=== PATIENT | female | born 1955 | race Caucasian/White ===

== ENCOUNTER → 2019-10-14 | Outpatient (CLI) | payer MEDICARE, BC ==
--- NOTE | 2019-10-14 09:25 | XR ---
Abdomen HISTORY: Left kidney stone Frontal view of the abdomen on 2 images, correlation CT scan 06/24/2018 There is a calcification superimposed over the region of the lower pole the left kidney or possibly t ortuous ureter measuring approximately 2.3 cm. No evident pneumoperitoneum or bowel obstruction. Calc ification in the right hemipelvis is likely representing injection granuloma in the gluteal region on the right. Arthropathy change present at the pubic symphysis. Phleboliths are present within the pel vis. IMPRESSION: Calcification as described felt more likely to be within the left kidney than within the ureter as on prior CT.
== END | disposition home or self-care (01) ==
LOC: RADXRMAIN 08:39
PROVIDERS: ATTEND Urology
DX: N20.1 Calculus of ureter (principal)
CPT/HCPCS: 74018

== ENCOUNTER → 2020-02-04 | Outpatient (CLI) | payer MEDICARE, BC ==
--- NOTE | 2020-02-05 22:17 | XR ---
EXAMINATION TYPE: XR KUB DATE OF EXAM: 02/04/2020 Comparison: 10/14/2019 Clinical History: 64-year-old female left N20.0 Kidney Stone Findings: Large 2.0 cm calculus left mid abdomen. Stable phlebolith in the pelvis. Nonobstructive bowel gas pat tern. Mild stool burden. Supine imaging limited for assessment of free air. Impression: Redemonstrated large 2.0 cm calculus on the left.
== END | disposition home or self-care (01) ==
LOC: RADXRMAIN 10:03
PROVIDERS: ATTEND Urology
DX: N20.0 Calculus of kidney (principal)
CPT/HCPCS: 74018

== ENCOUNTER → 2020-02-22 | Outpatient (CLI) | payer MEDICARE, BC ==
[2020-02-22 08:29] LABS: Basophils # (A) 0.1 k/uL (0-0.2); Basophils % (A) 1 %; Eosinophils # (A) 0.4 k/uL (0-0.7); Eosinophils % (A) 7 %; HCT 43.3 % (34.0-46.0); HGB 13.2 gm/dL (11.4-16.0); Hypochromasia Slight; Lymphocytes # (A) 1.6 k/uL (1.0-4.8); Lymphocytes % (A) 29 %; MCH 26.9 pg (25.0-35.0); MCHC 30.5 g/dL (31.0-37.0); MCV 88.2 fL (80.0-100.0); Mean Platelet Volume 7.2; Monocytes # (A) 0.4 k/uL (0-1.0); Monocytes % (A) 7 %; Neutrophils # (A) 2.9 k/uL (1.3-7.7); Neutrophils % (A) 52 %; Platelet Count 223 k/uL (150-450); RBC 4.91 m/uL (3.80-5.40); RDW 13.1 % (11.5-15.5); WBC 5.6 k/uL (3.8-10.6)
[2020-02-22 08:44] LABS: Calcium 9.2 mg/dL (8.4-10.2); Potassium 4.4 mmol/L (3.5-5.1)
== END | disposition home or self-care (01) ==
LOC: LABPAT 07:32
PROVIDERS: ATTEND Urology
DX: Z01.818 Encounter for other preprocedural examination (principal); N20.0 Calculus of kidney; R31.29 Other microscopic hematuria
CPT/HCPCS: 36415; 80048; 85025; 93005

== ENCOUNTER 2020-02-24 11:37 | Day surgery (SDC) | payer MEDICARE, BC ==
--- NOTE | 2020-02-19 19:41 | P.GSHP ---
History of Present Illness H&P Date: 02/19/20 64 yo femal with a 2 cm llp stone with intermittent pain who comes for pcnl right She has a history of stones This stone origicanly was obstructing in the uj but she declined surgery at that time It has falled back into the llp. It is causing intermittent pain and she wants it out. She comes for a pcnl left the risks complications and alternatives have been discussed. - Constitutional Constitutional: Denies chills, Denies fever - EENT Eyes: denies blurred vision, denies pain Ears, nose, mouth and throat: Denies headache, Denies sore throat - Cardiovascular Cardiovascular: Denies chest pain, Denies shortness of breath - Respiratory Respiratory: Denies cough, Denies 7 - Gastrointestinal Gastrointestinal: Denies abdominal pain, Denies diarrhea, Denies nausea, Denies vomiting - Genitourinary (Female) Genitourinary: Denies dysuria, Denies hematuria - Genitourinary (Male) Genitourinary: Denies dysuria, Denies hematuria - Musculoskeletal Musculoskeletal: Denies myalgias - Integumentary Integumentary: Denies pruritus, Denies rash - Neurological Neurological: Denies numbness, Denies weakness - Psychiatric Psychiatric: Denies anxiety, Denies depression - Endocrine Endocrine: Denies fatigue, Denies weight change Past Medical History Past Medical History: Hypertension Additional Past Medical History / Comment(s): kidney stones History of Any Multi-Drug Resistant Organisms: None Reported Past Surgical History: Hysterectomy, Tonsillectomy Additional Past Surgical History / Comment(s): right ear drum, plantar fasciatis Past Psychological History: No Psychological Hx Reported Smoking Status: Never smoker Past Alcohol Use History: None Reported Past Drug Use History: None Reported Medications and Allergies Home Medications Medication Instructions Recorded Confirmed Type Cephalexin [Keflex] 500 mg PO Q8H 7 Days cap 06/24/18 Rx Ibuprofen [Motrin Ib] 400 mg PO Q6HR PRN 06/24/18 06/24/18 History Losartan Potassium 100 mg PO DAILY 06/24/18 06/24/18 History Naproxen Sodium [Aleve] 220 mg PO DAILY PRN 06/24/18 06/24/18 History amLODIPine [Norvasc] 10 mg PO DAILY 06/24/18 06/24/18 History Allergies Allergy/AdvReac Type Severity Reaction Status Date / Time Iodinated Contrast Media Allergy Anaphylaxis Verified 10/18/18 15:28 [Iodinated Contrast- Oral and IV Dye] Surgical - Exam - General well developed, well nourished, no distress - Eyes normal ocular movement, no icteric - ENT no hearing loss, no congestion - Neck no masses, trachea midline - Respiratory normal respiratory effort, clear to auscultation - Abdomen Abdomen: soft, non tender, no guarding, no rigid, no rebound - Integumentary no rash, no abnormal pigmentation - Neurologic no disoriented, no combative - Musculoskeletal normal gait, normal posture - Psychiatric oriented to time, oriented to person, oriented to place, speech is normal, memory intact Results - Imaging Abdominal x-ray: report reviewed, image reviewed CT scan - chest: report reviewed, image reviewed CT scan - pelvis: report reviewed, image reviewed Assessment and Plan Assessment: Impression: Left renal stone, large Plan: PCNLleft
[2020-02-21 13:39] VITALS: BMI 45.8
[~2020-02-24 11:37] MED LIST: AMPICILLIN 1,000 MG in SODIUM CHLORIDE 0.9% 50 ML IVPB ONE; GENTAMICIN 100 MG in SODIUM CHLORIDE 0.9% 100 ML IVPB ONE
[2020-02-24] MEDS ORDERED: LACTATED RINGERS 1,000 ML IV SCH (11:54)
[2020-02-24] MEDS ORDERED: fentaNYL (PF) 50 MCG/ML 2 ML AMP IV PRN (11:54)
[2020-02-24] MEDS ORDERED: MIDAZOLAM 2 MG/2 ML VIAL IV PRN (11:54)
[2020-02-24] MEDS ORDERED: LIDOCAINE 1% (10MG/ML) FOR IV START INTRADERMA PRN (11:54)
[2020-02-24] MEDS ORDERED: HYDROmorphone 0.5 MG/0.5 ML SYRINGE IVP PRN (11:54)
[2020-02-24] MEDS ORDERED: LIDOCAINE 1% (10MG/ML) FOR IV START INTRADERMA ONE (12:15)
[2020-02-24] MEDS ORDERED: ONDANSETRON 4 MG/2 ML VIAL ONE (12:24)
[2020-02-24] MEDS: DEXAMETHASONE SOD PHOSPHATE 10 MG/ML 1 ML VIAL IV ONE ×2 (12:27→14:56)
[2020-02-24] MEDS: ONDANSETRON 4 MG/2 ML VIAL IVP ONE ×2 (12:27→14:56)
--- NOTE | 2020-02-24 12:36 | XR ---
EXAMINATION TYPE: XR KUB DATE OF EXAM: 02/24/2020 COMPARISON: 02/04/2020 HISTORY: Kidney stone TECHNIQUE: One view abdominal series FINDINGS: The osseous structures are intact. The bowel gas pattern is nonspecific. Stable large 2 cm left emma l stone overlying the lower pole the left kidney. Calcifications the pelvis are nonspecific but stabl e. 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 Hypertrophic change of the spine. IMPRESSION: 1. Stable large left renal calculus measuring 2 cm.
[2020-02-24] MEDS ORDERED: fentaNYL (PF) 50 MCG/ML 2 ML AMP ONE (12:43)
[2020-02-24] MEDS ORDERED: SUCCINYLCHOLINE CHLORIDE 100 MG/5 ML SYR IV ONE (12:43)
[2020-02-24] MEDS ORDERED: PROPOFOL 10 MG/ML 20 ML VIAL IV ONE (12:43)
[2020-02-24] MEDS ORDERED: MIDAZOLAM 2 MG/2 ML VIAL ONE (12:43)
[2020-02-24] MEDS ORDERED: ePHEDrine SULFATE/0.9% NACL/PF 50 MG/5 ML SYRINGE IV ONE (12:43)
[2020-02-24] MEDS ORDERED: LIDOCAINE 1% INJ 10MG/ML (20 ML MDV) ONE (12:43)
[2020-02-24] MEDS ORDERED: ROCURONIUM BROMIDE 10 MG/ML 5 ML VIAL IV ONE (12:43)
[2020-02-24] MEDS ORDERED: NEOSTIGMINE 1 MG/ML 10 ML VIAL ONE (12:43)
[2020-02-24] MEDS ORDERED: GLYCOPYRROLATE 0.2 MG/ML 2 ML VIAL ONE (12:43)
[2020-02-24] MEDS ORDERED: IOPAMIDOL-370 50ML BTL MISCELLANE ONE (13:40)
[2020-02-24] MEDS ORDERED: ACETAMINOPHEN TAB 325 MG TAB PO PRN (14:03)
[2020-02-24] MEDS ORDERED: ONDANSETRON 4 MG/2 ML VIAL IVP PRN (14:03)
[2020-02-24] MEDS ORDERED: MAG HYDROX/AL HYDROX/SIMETH 30 ML CUP PO PRN (14:03)
[2020-02-24] MEDS ORDERED: KETOROLAC 30 MG/ML 1 ML VIAL IVP PRN (14:05)
[2020-02-24] MEDS ORDERED: HYDROmorphone PCA 10 MG/50 ML BAG IV PRN (14:05)
[2020-02-24] MEDS ORDERED: NALOXONE 0.4 MG/ML 1 ML VIAL IV PRN (14:05)
--- NOTE | 2020-02-24 14:08 | P.OP ---
Date of Procedure: 02/24/20 Preoperative Diagnosis: Left renal stone, large greater than 2 cm Postoperative Diagnosis: Same Procedure(s) Performed: Cystoscopy, placement of occluding balloon catheter left, percutaneous nephrostomy (Dr. Lemons) percutaneous nephrostolithotomy with ultrasound, 10- Martiniquais J nephrostomy tube Anesthesia: MARTINA Surgeon: Nicola Fraga Estimated Blood Loss (ml): 50 Pathology: other (Stone) Condition: stable Disposition: PACU Indications for Procedure: The patient is 64. She has a 2 cm stone in the renal pelvis causing pain and obstruction. She comes for a percutaneous nephrostolithotomy Description of Procedure: Patient is brought to the operating suite. She is given a general endotracheal anesthesia on the transport gurney. She's placed in a frog position with sterile prep and drape. Cystoscopy Foroblique lens and 22-Martiniquais sheath identifies left ureter. It is intubated with a 5-Martiniquais occluding balloon catheter which is passed up into the renal pelvis. The cystoscope was removed. The Payton catheter, 16-Martiniquais is placed in the bladder and secured to the ureteral catheter The patient's placed in prone position with care to airways and extremities. Dr. Lemons of radiology performed percutaneous nephrostomy to the left lower pole calyx. The track was dilated to 30-Martiniquais. I introduced the rigid scope into the collecting system. The clot is removed. The stone was seen. With ultrasound the stone was broken into smaller fragments and grasp and removed. End of the procedure I looked throughout the collecting system is no remaining stone. A 10 J nephrostomy tubes placed over the working wire. It flowed freely. The patient's awake and returned recovery in good condition. She tolerated procedure well. Blood loss was probably 50 mL.
--- NOTE | 2020-02-24 14:24 | FL ---
EXAMINATION TYPE: FL Perc Nephrostomy New Access DATE OF EXAM: 02/24/2020 COMPARISON: KUB 02/24/2020 HISTORY: Left nephrolithiasis PROCEDURE: Maximal barrier technique was utilized, hand hygiene obtained with soap and . The skin overlying the left kidney was localized using fluoroscopy and the overlying skin prepped and draped. Skin fabio was made with a scalpel. Access was gained under fluoroscopy, following placement of a ureteral occlusi on balloon by the referring clinician and instillation of air in the renal collecting system with a 2 1-gauge needle to left kidney. A suitable posterior calyx was chosen. A 0.018 inch wire was advanc ed. The access site was dilated, access site was upsized, safety wire deployed and subsequently a sh eath was advanced into the renal pelvis following dilation with balloon along the tract. The patient underwent nephrolithotomy by the referring clinician. The patient remained in stable condition with out complication. The patient was discharged to observation in the care of anesthesia. 5 minute 16 seconds fluoroscopy time, single intraoperative image documents the procedure IMPRESSION: STATUS POST NEPHROSTOMY PLACEMENT FOR NEPHROLITHOTOMY WITH FLUOROSCOPIC GUIDANCE. THIS PROCEDURE PER FORMED BY THE UNDERSIGNED.
[2020-02-24] MEDS: DEXTROSE 5%-0.45% NACL 1,000 ML IV SCH (15:47)
[2020-02-24] MEDS ORDERED: SODIUM CHLORIDE 0.9% 500 ML 500 ML IV ONE (18:12)
[2020-02-25] MEDS: DEXTROSE 5%-0.45% NACL 1,000 ML IV SCH (00:19)
--- NOTE | 2020-02-25 07:22 | P.DS ---
Providers Attending physician: Nicola Fraga Primary care physician: Bautista Marito [facility] Course: The patient is 64. She has a 2 cm left renal stone. This is causing intermittent pain. She underwent a percutaneous nephrostolithotomy yesterday 02/24/2020. She is observed in the hospital overnight. She did well. Her vital signs are stable. Urine output good. She'll be discharged home later today on a regular diet limited activity. She'll take Tylenol or Motrin for pain. She'll be seen in the office Thursday for nephrostomy tube removal. Her condition is good. Stone report is pending. Patient Condition at Discharge: Good Plan - Discharge Summary Discharge Rx Participant: No New Discharge Prescriptions: No Action amLODIPine [Norvasc] 10 mg PO DAILY Losartan Potassium 100 mg PO DAILY Glucosamine Sulfate 500 mg PO DAILY Atenolol [Tenormin] 1 tab PO DAILY Discharge Medication List Losartan Potassium 100 mg PO DAILY 06/24/18 [History] amLODIPine [Norvasc] 10 mg PO DAILY 06/24/18 [History] Glucosamine Sulfate 500 mg PO DAILY 02/21/20 [History] Atenolol [Tenormin] 1 tab PO DAILY 02/24/20 [History] Follow up Appointment(s)/Referral(s): Nicola Fraga MD [STAFF PHYSICIAN] - 02/27/20 Discharge Disposition: HOME SELF-CARE
[2020-02-25] MEDS ORDERED: ATENOLOL PO SCH (09:00)
[2020-02-25] MEDS ORDERED: atenoloL 25 MG TAB PO SCH (09:00)
[2020-02-25] MEDS ORDERED: LOSARTAN 50 MG TAB PO SCH (09:00)
[2020-02-25] MEDS ORDERED: amLODIPine 10 MG TAB PO SCH (09:00)
[2020-02-25 10:23] VITALS: BP 118/68; PULSE 69; RESP 16; TEMP 97.9
== END 2020-02-25 13:05 | disposition home or self-care (01) ==
LOC: OR 11:37 → 6PED 14:10 → OR 02-25 13:05
PROVIDERS: ATTEND Urology
DX: N20.0 Calculus of kidney (principal); I10 Essential (primary) hypertension; Z87.442 Personal history of urinary calculi; Z90.710 Acquired absence of both cervix and uterus; Z90.89 Acquired absence of other organs; Z98.890 Other specified postprocedural states; Z87.39 Personal history of other diseases of the musculoskeletal system and connective tissue; Z79.899 Other long term (current) drug therapy; Z91.041 Radiographic dye allergy status
CPT/HCPCS: 86900; 86901; 86850; 82365; 74018; 50432; 50080; C1769 ×3; C2628; C1729 ×2; C1894; J2250; J1100; J2710; J2405; J2001; J3010; J1580; J0290; J0330; J2704; Q9967; J1170

== ENCOUNTER → 2023-03-27 | Outpatient (CLI) | payer MEDICARE, BC ==
--- NOTE | 2023-03-29 11:16 | CT ---
EXAMINATION TYPE: CT heart w calcium score DATE OF EXAM: 03/27/2023 COMPARISON: None HISTORY: Screening for cardiovascular disorder. 213.9 CT DLP: 292.6 mGycm Automated exposure control for dose reduction was used. CT CALCIUM SCORING Coronary calcium is a marker for plaque (fatty deposits) in a blood vessel or atherosclerosis (harden ing of the arteries). The presence and amount of calcium detected in a coronary artery by the CT sca n, indicates the presence and amount of atherosclerotic plaque. These calcium deposits appear years before the development of heart disease symptoms such as chest pain and shortness of breath. A calcium score is computed for each of the coronary arteries based upon the volume and density of th e calcium deposits. This can be referred to as your calcified plaque burden. It does not correspond directly to the percentage of narrowing in the artery but does correlate with the severity of the un derlying coronary atherosclerosis. PROCEDURE TECHNIQUE - Prospective Gating was used. Slice thickness: 3mm. Density threshold (HU): 130, Pixel threshold: 3, Algorithm: discrete. RESULTS Region: LM Calcium Score (Agatston): 0 Volume (mm3): 0 Mass (g): 0 Region: RCA Calcium Score (Agatston): 0 Volume (mm3): 0 Mass (g): 0 Region: LAD Calcium Score (Agatston): 0 Volume (mm3): 0 Mass (g): 0 Region: CX Calcium Score (Agatston): 0 Volume (mm3): 0 Mass (g): 0 Region: PDA Calcium Score (Agatston): 0 Volume (mm3): 0 Mass (g): 0 Total: Calcium Score (Agatston): 0 Volume (mm3): 0 Mass (g): 0 TOTAL CALCIUM SCORE: 0 IMPRESSION: Calcium Score: 0 Implication: No identifiable plaque. Risk of Coronary Artery Disease: Very low generally less than 5% CALCIUM SCORE IMPLICATION RISK OF C ORONARY ARTERY DISEASE 0 No identifiable plaque Very low, generally less than 5% 1-10 Minimal identifiable plaque Very unlikely, less than 10% 11-100 Definite, at least mild atherosclerotic plaque Mild or m inimal coronary narrowings likely 101-400 Definite, at least moderate atherosclerotic plaque Mild coronary ar anel disease highly likely, significant narrowing possible 401 or Higher Extensive atherosclerotic plaque High lik elihood of at least one significant coronary narrowing
== END | disposition home or self-care (01) ==
LOC: RADCTMAIN 14:10
PROVIDERS: ATTEND Internal Medicine
DX: Z13.6 Encounter for screening for cardiovascular disorders (principal); E78.2 Mixed hyperlipidemia; I25.10 Atherosclerotic heart disease of native coronary artery without angina pectoris
CPT/HCPCS: 75571

== ENCOUNTER → 2024-08-24 | Outpatient (CLI) | payer MEDICARE, BC ==
[2024-08-24 16:26] LABS: INR 0.9 (<1.2); Prothrombin Time 10.3 sec (10.0-12.5)
[2024-08-24 16:36] LABS: Partial Thromboplastin Time 21.2 sec (22.0-30.0)
[2024-08-24 19:55] LABS: ALT 23 U/L (8-44); AST 25 U/L (13-35); Albumin 4.1 g/dL (3.8-4.9); Albumin/Globulin Ratio 1.46 Ratio (1.60-3.17); Alkaline Phosphatase 56 U/L (41-126); Blood Urea Nitrogen 22.7 mg/dL (9.0-27.0); Calcium 9.6 mg/dL (8.7-10.3); Carbon Dioxide 24.1 mmol/L (21.6-31.8); Chloride 106 mmol/L (96-109); Globulin 2.8 g/dL (1.6-3.3); Glucose 79 mg/dL (70-110); Potassium 4.6 mmol/L (3.5-5.5); Sodium 140 mmol/L (135-145); Total Bilirubin 1.2 mg/dL (0.3-1.2); Total Protein 6.9 g/dL (6.2-8.2)
[2024-08-24 20:11] LABS: HGB 13.6 g/dL (12.0-15.0); MCH 25.9 pg (27.0-32.0); MCHC 29.6 g/dL (32.0-37.0); MCV 87.5 FL (80.0-97.0); Mean Platelet Volume 10.6 FL (9.5-12.2); NRBC Per 100 WBC 0 X 10*3/uL (0.00-0.01); Platelet Count 270 X 10*3/uL (140-440); RBC 5.26 X 10*6/uL (4.10-5.20); WBC 6.85 X 10*3/uL (4.50-10.00)
== END | disposition home or self-care (01) ==
LOC: LABPAT 15:24
PROVIDERS: ATTEND Orthopaedic Surgery Sports Medicine
DX: Z01.818 Encounter for other preprocedural examination (principal); Z22.322 Carrier or suspected carrier of Methicillin resistant Staphylococcus aureus; M17.12 Unilateral primary osteoarthritis, left knee
CPT/HCPCS: 80053; 85027; 85610; 85730; 87070

== ENCOUNTER 2024-09-01 08:06 | Day surgery (SDC) | payer MEDICARE, BC ==
[~2024-09-01 08:06] MED LIST changes: -AMPICILLIN 1,000 MG in SODIUM CHLORIDE 0.9% 50 ML IVPB ONE; -GENTAMICIN 100 MG in SODIUM CHLORIDE 0.9% 100 ML IVPB ONE; +ONDANSETRON 4 MG/2 ML VIAL IVP PRN; +TRANEXAMIC 1,000 MG/100ML-NACL 1,000 MG in SALINE 1 100ML.BAG IVPB PRN
[2024-09-01] MEDS: IV FLUID CONTINUATION 1,000 ML IV ONE (08:30)
[2024-09-01] MEDS ORDERED: LIDOCAINE 1% (10MG/ML) FOR IV START INTRADERMA PRN (08:36)
[2024-09-01 08:43] LABS: Glucose,Whole Blood 118 mg/dL (70-110)
[2024-09-01] MEDS: LACTATED RINGERS 1,000 ML IV SCH ×2 (08:59→16:22)
[2024-09-01] MEDS: ONDANSETRON 4 MG/2 ML VIAL IVP ONE (08:59)
[2024-09-01] MEDS: MELOXICAM 7.5 MG TAB PO PRN (09:00)
[2024-09-01] MEDS: GABAPENTIN 300 MG CAP PO PRN (09:00)
[2024-09-01] MEDS: ACETAMINOPHEN TAB 500 MG TAB PO PRN (09:00)
[2024-09-01] MEDS: DEXAMETHASONE SOD PHOSPHATE 4 MG/ML 1 ML VIAL IVP STA (09:01)
[2024-09-01] MEDS: MIDAZOLAM 2 MG/2 ML VIAL IV ONE (09:23)
[2024-09-01] MEDS: fentaNYL (PF) 50 MCG/ML 2 ML AMP IVP PRN (09:23)
[2024-09-01] MEDS ORDERED: NALOXONE 0.4 MG/ML 1 ML VIAL IV PRN (09:49)
[2024-09-01] MEDS ORDERED: MAGNESIUM HYDROXIDE 2,400 MG/30 ML CUP PO PRN (09:49)
[2024-09-01] MEDS ORDERED: ACETAMINOPHEN TAB 325 MG TAB PO PRN (09:49)
[2024-09-01] MEDS ORDERED: HYDROmorphone 0.5 MG/0.5 ML SYRINGE IVP PRN ×3 (09:49)
[2024-09-01] MEDS ORDERED: NA PHOS,M-B/NA PHOS,DI-BA 133 ML ENEMA RECTAL PRN (09:49)
[2024-09-01] MEDS ORDERED: bisacodyL 10 MG SUPP RECTAL PRN (09:49)
[2024-09-01] MEDS ORDERED: ePHEDrine 50 MG/ML 1 ML VIAL ONE (10:20)
[2024-09-01] MEDS ORDERED: MIDAZOLAM 2 MG/2 ML VIAL ONE (10:20)
[2024-09-01] MEDS ORDERED: TRANEXAMIC 1,000 MG/100ML-NACL PREMIX BAG ONE (10:20)
[2024-09-01] MEDS ORDERED: ROPIVACAINE 5 MG/ML 30 ML VIAL ONE (10:20)
[2024-09-01] MEDS ORDERED: PROPOFOL 10 MG/ML 20 ML VIAL IV ONE (10:20)
[2024-09-01] MEDS ORDERED: fentaNYL (PF) 50 MCG/ML 2 ML AMP ONE (10:20)
[2024-09-01] MEDS: ceFAZolin 1,000 MG in SODIUM CHLORIDE 0.9% 1,000 ML IRRIGATION ONE (10:22)
[2024-09-01] MEDS: LACTATED RINGERS 1,000 ML IV ONE (11:00)
[2024-09-01] MEDS: ROPIVACAINE 1,100 MG, SODIUM CHLORIDE 0.9% 500 ML 330 ML, EMPTY PAIN BALL 1 EACH MISCELLANE PRN (12:33)
--- NOTE | 2024-09-01 13:03 | P.ANPRN ---
Procedure Note - Anesthesia - Nerve Block Performed Left Adductor Canal Infusion Time Out Performed: Yes (0922) Date of Procedure: 09/01/24 Procedure Start Time: : Procedure Stop Time: Location of Patient: PreOp Indication: Acute Post-Operative Pain, Requested by Surgeon Specifically requested for management of pain by DrDella: Trell Oakes Sedation Type: Sedate with meaningful contact maintained Preparation: Sterile Prep, Sterile Dressing Position: Supine Catheter Depth at Skin (cm): 8 Catheter: Indwelling Needle Types: Pajunk Needle Gauge: 18 Ultrasound used to visualize needle placement: Yes Ultrasound used to observe medication spread: Yes Injectate: 0.5% Ropivacaine (see comment for volume) (20cc) Blood Aspirated: No Pain Paresthesia on Injection Noted: No Resistance on Injection: Normal Image Stored and Saved: Yes Events: Uneventful and Well Tolerated
--- NOTE | 2024-09-01 13:04 | P.ANPRN ---
Procedure Note - Anesthesia - Nerve Block Performed Left iPack Single Time Out Performed: Yes (0922) Date of Procedure: 09/01/24 Procedure Start Time: Procedure Stop Time: :32 Location of Patient: PreOp Indication: Acute Post-Operative Pain, Requested by Surgeon Specifically requested for management of pain by DrDella: Trell Oakes Sedation Type: Sedate with meaningful contact maintained Preparation: Sterile Prep Position: Supine Catheter: None Needle Types: Pajunk Needle Gauge: 21 Ultrasound used to visualize needle placement: Yes Ultrasound used to observe medication spread: Yes Injectate: 0.5% Ropivacaine (see comment for volume) (20cc) Blood Aspirated: No Pain Paresthesia on Injection Noted: No Resistance on Injection: Normal Image Stored and Saved: Yes Events: Uneventful and Well Tolerated
[2024-09-01] MEDS: HYDROmorphone 0.5 MG/0.5 ML SYRINGE IVP PRN (13:12)
--- NOTE | 2024-09-01 13:31 | OP ---
OPERATIVE REPORT DATE OF SERVICE : 09/01/2024 PREOPERATIVE DIAGNOSIS: Left knee osteoarthrosis. POSTOPERATIVE DIAGNOSIS: Left knee osteoarthrosis. OPERATION: Left total knee arthroplasty. ANESTHESIA: Spinal with sedation. ESTIMATED BLOOD LOSS: 100 mL. TOURNIQUET TIME: 49 minutes at 250 mmHg. COMPLICATIONS: None apparent. DRAINS: None. DISPOSITION: Postanesthesia care unit. INDICATIONS: Brook is a very pleasant 68-year-old female with longstanding history of left knee pain. Her history and physical examination are consistent with advanced left knee osteoarthrosis. She has been through significant operative management up to this point. Further treatment options were discussed, and she decided to go forward with the left total knee arthroplasty. Risks of procedure were discussed with her in detail. These risks include but are not limited to risk of infection, nerve damage, bleeding, pain, and a small risk of deep vein thrombosis which could lead to fatal pulmonary embolism. There is also small risk of loosening of the implant which could require revision operation. The patient understands these risks. All of her questions with regard to the risks of procedure were answered to her satisfaction. Appropriate informed consent was obtained. DESCRIPTION OF PROCEDURE: The patient was identified in the preoperative holding area. Surgical site was marked by both patient and myself. She was given 2 g of Ancef IV for prophylactic purposes. She was then transported to the operative suite. She was placed supine on the operating table. Spinal anesthetic was then administered, dosed per the Anesthesia department without apparent complication. Examination under anesthesia was then performed. The patient was 2-3 degrees shy of full extension. She had 95 degrees of flexion. The medial collateral ligament, lateral ligament, and posterior cruciate ligaments were stable. Tourniquet was then placed high on the left upper thigh well-padded in preparation for surgery. The patient's left lower extremity was then prepped and draped in the usual sterile fashion. Standard surgical pause undertaken to ensure that we were operating the correct site and that appropriate preoperative antibiotics were given. All staff in room were in agreement, and we proceeded. The outlines of the patella were marked with a surgical pen. A planned 12 cm vertical incision centered over the patella was marked with a surgical pen. Leg was then exsanguinated with Esmarch dressing. The knee was then flexed, and the tourniquet was inflated to 250 mmHg. Total tourniquet time for the procedure was 49 minutes. Incision was then made with a 10-blade scalpel. Dissection was carried down sharply to the overlying fascia. Great care was taken to minimize the skin flaps. The knee was then exposed using a standard medial parapatellar approach. A small cuff of quadriceps tendon was then left for suturing. She was in a bit of varus preoperatively. A standard medial release was then made. Superficial medial collateral ligament was dissected off the bone around the posterior aspect of the proximal tibia. The medial meniscus was then excised as well. The lateral meniscus was also released anteriorly. Leg was then externally rotated. The patella was everted. The knee was flexed. Retractor was then placed to protect the collateral ligaments. I then proceeded to remove the infrapatellar fat pad. This was excised sharply tangentially with fibers of the patellar tendon. I then proceeded to remove the peripheral osteophytes. This was done with a rongeur. I then proceeded with the distal femoral resection. She did have near full extension. A planned 9 mm resection was then done. The femoral canal was then entered in the midline of the femur, approximately 10 mm anterior to the origin of posterior cruciate ligament. The didi was then advanced down the center of the femur and placed intramedullary. Based on the preoperative radiographs, the angle between the anatomic and mechanical axis of the femur was approximately 4-5 degrees. The valgus angle towards the distal femoral cutting guide was then set at 4 degrees for the left knee. The distal femoral cutting guide was then advanced over the intramedullary didi. This was seated firmly against the femur. Then as mentioned, I planned to take 9 mm off the distal femur. The cutting block was then secured to the femur with pins. The jig was then removed from the distal femoral cuts. Femoral cut was made through the slot of the block. The pins were then removed. The distal femoral cutting block was removed. The accuracy of the distal femoral cuts was checked with 2 flat bars. I then proceeded with femoral sizing. Posterior referencing sizing guide was held firmly against the resected distal surface of the femur. The posterior condyles were resting on the posterior plane of the guide. The sizing stylus was then placed on the anterior femur. The size was measured to the size 7. I then assessed for femoral rotation. The plan was for 3 degrees of external rotation. Three degrees of external rotation was placed onto the jig. These holes were then marked. I then confirmed the rotation by 3 separate methods. This was done using epicondylar axis as well as Whitesides line and posterior referencing. It was deemed that the external rotation was proper. Then, a fourth port was placed in the femoral cutting block. This was placed over the previously placed pin holes. The John Paul wing was then placed onto the anterior slots to ensure they would not notch the anterior femur with the anterior femoral cut. I then proceeded with the anterior femoral cut. This was flush with the anterior cortex of the femur. The posterior cuts were then made followed by the anterior chamfer cut, then the posterior chamfer cut. The cutting block was then removed. Throughout the resection, the collateral ligaments were protected with retractors. I then placed a trial size 7 femur. It was slightly wide, but the narrow fit very nicely, and it fit flush with the distal end of the femur. The drill holes were then made. I then proceeded with the tibial cut. I planned for cruciate-retaining knee. The guide was placed and set for varus, valgus, and for slope. Height set for approximately 2 mm resection from the medial tibial plateau which was the lower side. I was happy with the alignment and amount of resection. The cutting block was then pinned to the proximal tibia. The alignment didi was removed and the proximal tibia was resected with a reciprocating saw. Again, this was done with retractors protecting the collateral ligaments as well as the posterior cruciate ligament. I then proceeded to evaluate the flexion and extension gaps. A 10 mm block was then placed. The flexion and extension gaps were equal. I then proceeded to resect the posterior osteophytes. She had very minimal posterior osteophytes. This was done using a curved osteotome. This resected the posterior osteophytes, and posterior capsular stripping was done off the posterior aspect of the femur at this time. The osteophytes were then removed. I then proceeded with resection of the patella. The thickness of the patella was measured using the caliper. The thickness was 22 mm. The thickness of the anticipated patellar dome was taken into account. Resection was then performed and confirmed to be equal in 4 quadrants using a caliper. Approximately 14 mm of bone remained after resection. A 29 x 8 mm standard patellar trial was then placed. The holes were drilled and the trial was then placed. I then proceeded with sizing tibial plate. A size D tibial plate fit very nicely. I then placed the trial femur, the tibial tray, and the patellar button. A 10 mm trial tibial insert was also placed. The components fit very nicely. She had full extension and flexion. The extension and flexion gaps were equal and stable to both varus and valgus stress. The patella tracked appropriately. Tibial tray rotation was then marked with a Bovie. This was externally rotated properly. I then proceeded with tibial preparation. I first drilled the femoral holes and removed the femoral component. The tibial tray was then set for proper external rotation as well as medial and lateral placement under the tibia. This was then pinned into place. I then proceeded with punching the keel. I then decided to proceed with cementing of all our components. The knee was thoroughly irrigated with sterile saline solution with antibiotic added via pulse lavage. The lateral geniculate artery was identified and cauterized. All blood was removed from the bone of the tibia, femur, and patella and pulsed lavage. I then proceeded with cementing. Two packs of antibiotic bone cement were prepared on the back table by surgical coordinator. I then proceeded with cementing of the tibia first. The cement was impacted in the keel as well as deeply seated in the bone. A second coat cement was then placed. The tibia was then impacted into place. Excess cement was removed with Karen's and Joker's. I then proceeded with cementing of the femoral component. The femoral component was also cemented using standard technique. Excess cement was removed. A 10 mm trial insert was also placed into the knee. It was brought into full extension with a constant axial load placed until the cement had hardened. The patellar component was also cemented. This held firmly with a compressive device until the cement had dried. When the cement had dried, the knee was taken out of extension. All excess cement was removed from around the prosthesis. I then trialed the knee with a 10 mm insert. Flexion and extension gaps were appropriate. The knee was stable with the 10 mm insert. It came into full extension. I decided to go for the 10 mm medial congruent cross-linked cruciate-retaining tibial insert. Polyethylene was then placed on the tibial tray and locked in place. The knee was then reduced. The knee was again further irrigated with sterile saline solution and antibiotic added. The tourniquet was then deflated. Total tourniquet time for the procedure was 49 minutes at 250 mmHg. Final components were Ajnel Persona size 7 narrow cruciate-retaining femoral component, size D tibial tray, a 10 mm medial congruent cruciate-retaining polyethylene insert, and a 29 x 8 mm patella. I then proceeded with closure. Again, the knee was thoroughly irrigated. The quadriceps tendon and the medial retinaculum were reapproximated with #2 Ethibond suture. The extensor mechanism was then closed with a running #2 Quill suture. Subcutaneous tissues were then closed with 2-0 Vicryl interrupted suture. The skin was closed with a running 3-0 Quill suture. Dermabond was applied to the incision. Sterile compressive dressing was then applied. All sponge and needle counts were deemed correct prior to closure. The patient tolerated the procedure without apparent complication. She was transferred to recovery room in stable condition. MMODL / IJN: [id number] /
--- NOTE | 2024-09-01 13:59 | XR ---
EXAMINATION TYPE: XR knee limited LT DATE OF EXAM: 09/01/2024 1:01 PM COMPARISON: None CLINICAL INDICATION: Female, 68 years old with history of Evaluation for Postop abnormality and align ment; PHH, pain TECHNIQUE: XR knee limited LT 2 views submitted. FINDINGS: Status post total knee arthroplasty changes with hardware in appropriate alignment and in tact. No evidence of fracture. Subcutaneous lucencies and lucencies within the joint consistent with surgical changes. IMPRESSION: Status post total knee arthroplasty changes with hardware intact and appropriate alignment. No fractu res identified. [facility], , 09/01/2024 1:57 PM
[2024-09-01 15:24] LABS: Glucose,Whole Blood 205 mg/dL (70-110)
[2024-09-01] MEDS: ONDANSETRON 4 MG/2 ML VIAL IVP PRN (15:50)
[2024-09-01] MEDS: droPERidol 5 MG/2 ML VIAL IVP ONE (16:22)
[2024-09-01] MEDS: SENNOSIDES-DOCUSATE SODIUM 1 EACH TAB PO SCH (22:17)
[2024-09-01] MEDS: ASPIRIN 81 MG PO SCH (22:17)
[2024-09-01] MEDS: traMADol 50 MG TAB PO PRN (22:18)
--- NOTE | 2024-09-02 07:02 | P.PN ---
Progress Note - Text 09/02/23 655am 68-year-old female status post total knee replacement by Dr. Oakes. Patient has an On-Q pump for postop pain control with a solution and 8 cc an hour with a VAS of 1, dressing clean dry and intact. Plan to continue On-Q pump infusion
[2024-09-02] MEDS: MULTIVITAMINS, THERA 1 EACH TAB PO SCH (08:41)
[2024-09-02] MEDS ORDERED: DEXTROSE 50% SYRINGE 50 ML IVP PRN ×2 (09:46)
[2024-09-02 10:17] LABS: Basophils # (A) 0.03 X 10*3/uL (0.00-0.10); Basophils % (A) 0.2 %; Eosinophils # (A) 0 X 10*3/uL (0.04-0.35); Eosinophils % (A) 0 %; HCT 39.1 % (37.2-46.3); HGB 11.4 g/dL (12.0-15.0); Lymphocytes # (A) 0.74 X 10*3/uL (0.90-5.00); Lymphocytes % (A) 6.1 %; MCH 26.3 pg (27.0-32.0); MCHC 29.2 g/dL (32.0-37.0); MCV 90.1 FL (80.0-97.0); Mean Platelet Volume 10.3 FL (9.5-12.2); Monocytes # (A) 0.67 X 10*3/uL (0.20-1.00); Monocytes % (A) 5.6 %; NRBC Per 100 WBC 0 X 10*3/uL (0.00-0.01); Neutrophils # (A) 10.55 X 10*3/uL (1.80-7.70); Neutrophils % (A) 87.6 %; Platelet Count 222 X 10*3/uL (140-440); RBC 4.34 X 10*6/uL (4.10-5.20); RDW 13.2 % (11.5-14.5); WBC 12.05 X 10*3/uL (4.50-10.00)
[2024-09-02 12:02] LABS: Glucose,Whole Blood 101 mg/dL (70-110)
[2024-09-02] MEDS: INSULIN ASPART (NovoLOG) 100 UNIT/ML VIAL SQ SCH (12:02)
--- NOTE | 2024-09-02 16:05 | P.PN ---
Subjective Progress Note Date: 09/02/24 Principal diagnosis: Left TKA Patient is seen at bedside this morning. She is postop day #1 from left total knee arthroplasty. She has pain at the surgical site as expected but denies any new complaints. He denies numbness, tingling or calf pain. Review of systems is negative for fever, chills, chest pain, shortness of breath or other Objective - Vital Signs Vital signs: Vital Signs Temp 98.5 F 09/02/24 07:16 Pulse 83 09/02/24 07:16 Resp 18 09/02/24 07:16 BP 113/58 09/02/24 07:16 Pulse Ox 93 L 09/02/24 07:16 FiO2 Intake & Output 09/01/24 09/02/24 09/02/24 18:59 06:59 18:59 Intake Total 1451 650 Output Total 100 Balance 1351 650 Weight 115.8 kg Intake: IV 1451 Intake, IV Titration 650 Amount Lactated Ringers 1,000 ml 600 @ 100 mls/hr IV .Q10H [facility] Rx#:[id number] ceFAZolin 2 gm In Sodium 50 Chloride 0.9% 50 ml @ 100 mls/hr IVPB ONCE PRN Rx# :[id number] Output: Urine 0 Estimated Blood Loss 100 Other: # Voids 2 - Exam Inspection reveals a benign surgical wound. There is no active bleeding or drainage. Neurovascular status is intact throughout the lower extremity with motor and sensation fully intact. Calf is soft and nontender. 2+ dorsalis pedis pulse and less than 2 second cap refill is present. - Constitutional General appearance: Present: no acute distress - Labs CBC & Chem 7: 09/02/24 03:16 Labs: Abnormal Lab Results - Last 24 Hours (Table) 09/01/24 09/02/24 Range/Units 15:22 03:16 WBC 12.05 H (4.50-10.00) X 10*3/uL Hgb 11.4 L (12.0-15.0) g/dL MCH 26.3 L (27.0-32.0) pg MCHC 29.2 L (32.0-37.0) g/dL Immature Gran # 0.06 H (0.00-0.04) X 10*3/uL Neutrophils # 10.55 H (1.80-7.70) X 10*3/uL Lymphocytes # 0.74 L (0.90-5.00) X 10*3/uL Eosinophils # 0 L (0.04-0.35) X 10*3/uL POC Glucose (mg/dL) 205 H (70-110) mg/dL Assessment and Plan (1) Osteoarthritis of left knee Narrative/Plan: She will continue with routine postop orthopedic protocol including pain management, wound care, PT, DVT prophylaxis and medical management. Expect that she will transfer to home tomorrow Current Visit: Yes Status: Acute Code(s): M17.12 - UNILATERAL PRIMARY OSTEOARTHRITIS, LEFT KNEE SNOMED Code(s): 766915760247783 Time with Patient: Less than 30
[2024-09-02 16:34] LABS: Glucose,Whole Blood 95 mg/dL (70-110)
[2024-09-02] MEDS: HYDROcodone/APAP 7.5-325MG 1 EACH TAB PO PRN (19:46)
[2024-09-02] MEDS: EZETIMIBE 10 MG TAB PO SCH (19:46)
[2024-09-02 20:59] LABS: Glucose,Whole Blood 137 mg/dL (70-110)
[2024-09-03] MEDS: HYDROcodone/APAP 7.5-325MG 1 EACH TAB PO PRN (03:37)
--- NOTE | 2024-09-03 05:52 | P.CONS ---
History of Present Illness - Reason for Consult Consult date: 09/02/24 Medical management, status post left total knee arthroplasty - History of Present Illness This is a pleasant 68-year-old female who was admitted under orthopedic services and is status post left total knee arthroplasty, postop day 1. Patient follows with Dr. Gunderson in the outpatient setting with a past medical history of diabetes, hyperlipidemia, hypertension, osteoarthritis. Medications reviewed and resumed as appropriate and recommend holding blood pressure pills as patient is currently normotensive. Will initiate Accu-Cheks along with sliding scale and recommend labs in the a.m. White count is mildly elevated at 12, likely reactive as patient denies chest pain, shortness of breath, pain or burning with urination. Patient with incentive spirometer at the bedside encouraged to use at least 10 times every hour while awake. Patient was evaluated by physical therapy this morning and continues with significant pain will be monitored overnight for pain management and reeval by PT/OT therapy in the a.m. REVIEW OF SYSTEMS: CONSTITUTIONAL: No fever, no malaise, no fatigue. HEENT: No recent visual problems or hearing problems. Denied any sore throat. CARDIOVASCULAR: No chest pain, orthopnea, PND, no palpitations, no syncope. PULMONARY: No shortness of breath, no cough, no hemoptysis. GASTROINTESTINAL: No diarrhea, no nausea, no vomiting, no abdominal pain. NEUROLOGICAL: No headaches, no weakness, no numbness. HEMATOLOGICAL: Denies any bleeding or petechiae. GENITOURINARY: Denies any burning micturition, frequency, or urgency. MUSCULOSKELETAL/RHEUMATOLOGICAL: Reports significant left knee pain and joint pain ENDOCRINE: Denies any polyuria or polydipsia. The rest of the 14-point review of systems is negative. PHYSICAL EXAMINATION: GENERAL: The patient is alert and oriented x3, not in any acute distress. Well developed, elderly appearing, morbidly obese HEENT: Pupils are round and equally reacting to light. EOMI. No scleral icterus. No conjunctival pallor. Normocephalic, atraumatic. No pharyngeal erythema. No thyromegaly. CARDIOVASCULAR: S1 and S2 present. No murmurs, rubs, or gallops. PULMONARY: Chest is clear to auscultation, no wheezing or crackles. ABDOMEN: Soft, obese, nontender, nondistended, normoactive bowel sounds. No palpable organomegaly. MUSCULOSKELETAL: No joint swelling or deformity. Left knee with some swelling noted minimal and dressing is dry and intact. Continues with ABD pad for dressing EXTREMITIES: No cyanosis, clubbing, or pedal edema. NEUROLOGICAL: Gross neurological examination did not reveal any focal deficits. Diffusely weak SKIN: No rashes. Assessment: Status post left total knee arthroplasty History of diabetes mellitus, type II History of hyperlipidemia History of hypertension Osteoarthritis Morbid obesity with a BMI of 48.2 GI prophylaxis DVT prophylaxis Full code Plan: Patient was admitted under orthopedic services status post left total knee arthroplasty. Patient continues with significant amount of pain and per nursing staff will be monitored overnight for pain control and follow-up with reevaluation with PT/OT therapy in the a.m. Home medications reviewed and resumed as appropriate and recommend holding blood pressure medications as patient is currently normotensive. Continue monitoring Accu-Cheks before meals and at bedtime and continue with sliding scale for now while in the hospital Encourage incentive spirometer use with proper education on the use of at least 10 times every hour while awake We will continue to follow with orthopedics during hospitalization. Thank you kindly for this consultation. The impression and plan of care has been dictated by Sho Vasquez Nurse Harrisont itioner as directed. Dr. Candelaria MD I have performed a history and examination and MDM of this patient, discussed the same with the dictator, and agree with the dictator's assessment and plan as written ,documented as a scribe. Based on total visit time, I have performed more than 50% of the visit. Past Medical History Past Medical History: Diabetes Mellitus, Hyperlipidemia, Hypertension, Osteoarthritis (OA) Additional Past Medical History / Comment(s): kidney stones, borderline diabetic History of Any Multi-Drug Resistant Organisms: None Reported Past Surgical History: Ear Surgery, Hysterectomy, Orthopedic Surgery, Tonsillectomy Additional Past Surgical History / Comment(s): right ear drum, plantar fasciitis right foot, [place] cataract, surg for kidney stones, [place] CTS, trigger thumb surg. Past Anesthesia/Blood Transfusion Reactions: No Reported Reaction Past Psychological History: No Psychological Hx Reported Smoking Status: Never smoker Past Alcohol Use History: None Reported Past Drug Use History: None Reported - Past Family History Mother Family Medical History: No Reported History Medications and Allergies Home Medications Medication Instructions Recorded Confirmed Type Losartan Potassium 100 mg PO HS 06/24/18 08/25/24 History amLODIPine [Norvasc] 10 mg PO HS 06/24/18 08/25/24 History atenoloL [Tenormin] 25 mg PO HS 02/24/20 08/25/24 History Ezetimibe [Zetia] 10 mg PO HS 08/25/24 08/25/24 History Allergies Allergy/AdvReac Type Severity Reaction Status Date / Time Iodinated Contrast Media Allergy Anaphylaxis Verified 09/01/24 08:32 [Iodinated Contrast- Oral and IV Dye] Physical Exam Vitals: Vital Signs Temp Pulse Pulse Resp BP BP Pulse Ox 09/02/24 07:16 98.5 F 83 18 113/58 93 L 09/02/24 02:00 98.7 F 85 19 110/67 93 L 09/01/24 20:00 98.2 F 89 18 101/65 93 L 09/01/24 16:52 78 107/65 89 L 09/01/24 16:37 81 94/57 89 L 09/01/24 16:22 87 106/67 90 L 09/01/24 16:07 83 99/61 89 L 09/01/24 15:54 97.3 F L 91 17 109/62 90 L 09/01/24 15:30 89 16 117/56 97 09/01/24 15:00 87 12 126/58 94 L 09/01/24 14:30 81 12 115/55 96 09/01/24 14:00 80 12 116/60 94 L 09/01/24 13:28 81 14 136/62 96 09/01/24 13:13 79 14 139/63 93 L 09/01/24 12:58 75 16 124/56 93 L 09/01/24 12:43 73 16 113/53 95 09/01/24 12:28 75 16 127/58 98 09/01/24 12:13 97.5 F L 79 16 120/58 94 L 09/01/24 09:57 85/46 Intake and Output 09/01/24 09/02/24 09/02/24 22:59 06:59 14:59 Intake Total 650 Output Total 0 Balance 0 650 Intake: Intake, IV Titration 650 Amount Lactated Ringers 1,000 ml 600 @ 100 mls/hr IV .Q10H [facility] Rx#:[id number] ceFAZolin 2 gm In Sodium 50 Chloride 0.9% 50 ml @ 100 mls/hr IVPB ONCE PRN Rx# :[id number] Output: Urine 0 Other: # Voids 2 Weight 115.8 kg Results CBC & Chem 7: 09/02/24 03:16 Labs: Abnormal Lab Results - Last 24 Hours (Table) 09/01/24 Range/Units 15:22 POC Glucose (mg/dL) 205 H (70-110) mg/dL
[2024-09-03 06:19] LABS: Glucose,Whole Blood 122 mg/dL (70-110)
[2024-09-03 07:54] VITALS: BP 122/62; PULSE 80; RESP 17; TEMP 98.4
[2024-09-03 09:32] LABS: BUN/Creat Ratio 21.82 Ratio (12.00-20.00); Calcium 8.7 mg/dL (8.7-10.3); Carbon Dioxide 26.2 mmol/L (21.6-31.8); Chloride 102 mmol/L (96-109); Glucose 119 mg/dL (70-110); Potassium 4.8 mmol/L (3.5-5.5); Sodium 138 mmol/L (135-145)
--- NOTE | 2024-09-03 11:11 | P.DS ---
Providers Expected date of discharge: 09/03/24 Attending physician: Trell Oakes Consults: 09/01/24 09:49 Consult Physician Routine Consulting Provider: Briseida Garcia Consult Reason/Comments: post op medical management Do you want consulting provider notified?: Yes Primary care physician: Andra Conleyo - Discharge Diagnosis(es) (1) Osteoarthritis of left knee Patient was admitted to the OR on 09/01/24 to undergo a left total knee arthroplasty. She had failed conservative measures as an outpatient and desired to proceed with elective surgery after given informed consent. She underwent the above procedure which she tolerated well without complication. Postoperative hospital course has remained without complication. On day of discharge she is afebrile, vital signs stable, labs within acceptable ranges, tolerating by mouth meds and diet, voiding without difficulty, positive flatus, denies abdominal pain or calf pain, pain is controlled on oral pain medication and has no new complaints. Wound is benign, neurovascular status is intact, calf is soft and nontender, abdomen soft and nontender. Review of systems is negative for numbness, tingling, fever, chills, chest pain, shortness of breath, nausea, vomiting, dizziness, headaches, slurred speech or other. Current Visit: Yes Status: Acute Priority: Medium (2) Status post total left knee replacement Current Visit: Yes Status: Acute Procedures: Left TKA Patient Condition at Discharge: Good Plan - Discharge Summary Discharge Rx Participant: No New Discharge Prescriptions: No Action amLODIPine [Norvasc] 10 mg PO HS Losartan Potassium 100 mg PO HS atenoloL [Tenormin] 25 mg PO HS Ezetimibe [Zetia] 10 mg PO HS Discharge Medication List Losartan Potassium 100 mg PO HS 06/24/18 [History] amLODIPine [Norvasc] 10 mg PO HS 06/24/18 [History] atenoloL [Tenormin] 25 mg PO HS 02/24/20 [History] Ezetimibe [Zetia] 10 mg PO HS 08/25/24 [History] Follow up Appointment(s)/Referral(s): [facility] [NON-STAFF] - 1-2 Days ([facility] will call you to schedule your in home physical therapy visits. )
[2024-09-03 11:35] LABS: Glucose,Whole Blood 115 mg/dL (70-110)
--- NOTE | 2024-09-04 19:02 | P.PN ---
Subjective Progress Note Date: 09/03/24 This is a pleasant 68-year-old female who was admitted under orthopedic services and is status post left total knee arthroplasty, postop day 1. Patient follows with Dr. Gunderson in the outpatient setting with a past medical history of diabetes, hyperlipidemia, hypertension, osteoarthritis. Medications reviewed and resumed as appropriate and recommend holding blood pressure pills as patient is currently normotensive. Will initiate Accu-Cheks along with sliding scale and recommend labs in the a.m. White count is mildly elevated at 12, likely reactive as patient denies chest pain, shortness of breath, pain or burning with urination. Patient with incentive spirometer at the bedside encouraged to use at least 10 times every hour while awake. Patient was evaluated by physical therapy this morning and continues with significant pain will be monitored overnight for pain management and reeval by PT/OT therapy in the a.m. 09/03/2024 Patient evaluated in follow up on the medical floor. Has been experiencing significant left knee pain about 8/10 states she is requiring 2 norco tablets additionally wanting IV pain medication. She is not having any shortness of breath or chest pain. Was evaluated by orthopedic surgery and recommending discharge home today with home physical therapy. Blood pressure controlled with current regimen and patient to continue all same home medications on discharge. Hemoglobin A1C found to be 6.4 and recommending improved glycemic control on discharge with diet. REVIEW OF SYSTEMS: CONSTITUTIONAL: No fever, no malaise, no fatigue. HEENT: No recent visual problems or hearing problems. Denied any sore throat. CARDIOVASCULAR: No chest pain, orthopnea, PND, no palpitations, no syncope. PULMONARY: No shortness of breath, no cough, no hemoptysis. GASTROINTESTINAL: No diarrhea, no nausea, no vomiting, no abdominal pain. NEUROLOGICAL: No headaches, no weakness, no numbness. PHYSICAL EXAMINATION: GENERAL: The patient is alert and oriented x3, not in any acute distress. Well developed, elderly appearing, morbidly obese HEENT: Pupils are round and equally reacting to light. EOMI. No scleral icterus. No conjunctival pallor. Normocephalic, atraumatic. No pharyngeal erythema. No thyromegaly. CARDIOVASCULAR: S1 and S2 present. No murmurs, rubs, or gallops. PULMONARY: Chest is clear to auscultation, no wheezing or crackles. ABDOMEN: Soft, obese, nontender, nondistended, normoactive bowel sounds. No palpable organomegaly. MUSCULOSKELETAL: No joint swelling or deformity. Left knee with some swelling noted minimal and dressing is dry and intact. Continues with ABD pad for dressing EXTREMITIES: No cyanosis, clubbing, or pedal edema. NEUROLOGICAL: Gross neurological examination did not reveal any focal deficits. Diffusely weak SKIN: No rashes. Assessment: Status post left total knee arthroplasty History of diabetes mellitus, type II, hemoglobin A1C 6.4. History of hyperlipidemia History of hypertension Osteoarthritis Morbid obesity with a BMI of 48.2 GI prophylaxis DVT prophylaxis Full code Plan: Patient was admitted under orthopedic services status post left total knee arthroplasty. Patient continues with significant amount of pain and per nursing staff will be monitored overnight for pain control and follow-up with reevalua tion with PT/OT therapy completed and patient has been cleared for DC home with home physical therapy. Home medications reviewed and resumed as appropriate and patient to resume home medications on discharge. Continue monitoring Accu-Cheks before meals and at bedtime and continue with sliding scale for now while in the hospital Encourage incentive spirometer use with proper education on the use of at least 10 times every hour while awake We will continue to follow with orthopedics during hospitalization. Thank you kindly for this consultation. The impression and plan of care has been dictated by Marcelle Noble, Nurse Practitioner as directed. Dr. Candelaria MD I have performed a history and examination and MDM of this patient, discussed the same with the dictator, and agree with the dictator's assessment and plan as written ,documented as a scribe. Based on total visit time, I have performed more than 50% of the visit. Objective - Vital Signs Vital signs: Vital Signs Temp 98.4 F 09/03/24 06:52 Pulse 80 09/03/24 06:52 Resp 17 09/03/24 06:52 BP 122/62 09/03/24 06:52 Pulse Ox 92 L 09/03/24 06:52 FiO2 - Labs CBC & Chem 7: 09/02/24 03:16 09/03/24 05:32
== END 2024-09-03 13:31 | disposition home health service (06) ==
LOC: OR 08:06 → 4SSUR 14:34 → OR 09-03 13:31
PROVIDERS: ATTEND Orthopaedic Surgery Sports Medicine
DX: M17.12 Unilateral primary osteoarthritis, left knee (principal); E11.9 Type 2 diabetes mellitus without complications; E66.01 Morbid (severe) obesity due to excess calories; E78.5 Hyperlipidemia, unspecified; I10 Essential (primary) hypertension; G89.18 Other acute postprocedural pain; Z68.42 Body mass index [BMI] 45.0-49.9, adult; Z91.041 Radiographic dye allergy status; Z90.710 Acquired absence of both cervix and uterus
CPT/HCPCS: 97161; 64999; 64448; 80048; 85025; 83036; 73560; 27447; C1776; C1713; C1751; J2250; J1100; J0690 ×3; J2405; J3010; J2795; J1171